=== PATIENT | female | born 1965 | race Caucasian/White ===

== ENCOUNTER → 2021-07-30 | Outpatient (CLI) | payer OTHER | LOC: MC.RAD 05-22 11:00 | DX: Z12.31 Encounter for screening mammogram for malignant neoplasm of breast (principal) ==

== ENCOUNTER → 2023-09-08 | Outpatient (CLI) | payer OTHER | LOC: CANSCHCLI → MC.RAD 12:57 | DX: Z12.31 Encounter for screening mammogram for malignant neoplasm of breast (principal) ==